=== PATIENT | female | born 1985 | race Caucasian/White ===

== ENCOUNTER 2023-02-21 19:35 | Emergency (ER) | payer MEDICAID, OTHER ==
[~2023-02-21] VITALS: Ht 162.6 cm; Wt 56.7 kg
[~2023-02-21 19:35] MED LIST: IBUP200C5 PO
[2023-02-21] MEDS ORDERED: AMOX1TAB16 PO (19:50)
[2023-02-21] MEDS ORDERED: ERYT30GE8 TP (19:50)
[2023-02-21] MEDS ORDERED: POLY10DR3 OP (19:50)
--- NOTE | 2023-02-21 19:52 | NUR ---
patient resting in bed with MD at bedside, informed of plan of care, no s/s of any distress noted at this time.
[2023-02-21 20:18] LABS: HEMATOCRIT 34.3 % (31.2-41.9); MEAN CORPUSCULAR HEMOGLOBIN 30.8 uug (24.7-32.8); MEAN CORPUSCULAR VOLUME 91.9 fL (75.5-95.3); PLATELET COUNT (AUTO) 273 K/uL (179-408)
[2023-02-21 20:35] LABS: CREATININE 0.7 mg/dL (0.6-1.3); POTASSIUM 3.4 mmol/L (3.5-5.1)
[2023-02-21 20:41] LABS: BILIRUBIN,TOTAL 0.4 mg/dL (0.2-1.0); TOTAL PROTEIN, SERUM 7.8 g/dL (6.4-8.2)
--- NOTE | 2023-02-21 21:08 | NUR ---
MD AT BEDSIDE TALKING WITH, OKAY FOR DISCHARGE HOME WITH FAMILY. STATES UNDERSTANDING, REMAINS STABLE.
[2023-02-21 21:13] VITALS: BP 122/68
== END 2023-02-21 21:14 | disposition home or self-care (01) ==
LOC: ER 19:36
DX: H10.9 Unspecified conjunctivitis (principal); R51.9 Headache, unspecified; Z88.8 Allergy status to other drugs, medicaments and biological substances; Z79.1 Long term (current) use of non-steroidal anti-inflammatories (NSAID); Z79.2 Long term (current) use of antibiotics; Z79.899 Other long term (current) drug therapy; Z20.822 Contact with and (suspected) exposure to COVID-19
CPT/HCPCS: 36415; 83690; 85025; A4663